=== PATIENT | female | born 2000 | race Caucasian/White ===

== ENCOUNTER 2019-02-12 12:15 | Outpatient (REF) | payer BC, SELFPAY ==
[2019-02-14 10:19] LABS: HBs Antibody, Quant <3.1 mIU/mL; Hepatitis B Surface Ab Negative
== END 2019-02-12 12:35 ==
LOC: NCHCN 12:15
PROVIDERS: PCP Physician Assistant Medical; Visit Provider Physician Assistant Medical
DX: Z11.59 Encounter for screening for other viral diseases (principal)
CPT/HCPCS: 86706

== ENCOUNTER 2019-09-01 12:32 | Outpatient (REF) | payer BC, SELFPAY ==
[2019-09-01 21:29] LABS: Abs Immature Grans 0.01 k/cumm (0.0-0.09); Absolute Basophil Count 0.02 k/cumm (0.0-0.2); Absolute Eosinophil Count 0.18 k/cumm (0.0-0.7); Absolute Lymphocyte Count 1.48 k/cumm (1.2-3.4); Absolute Neutrophil Count 4.59 k/cumm (1.2-6.7); Basophils % 0.3; Eosinophils % 2.6; HGB 13.6 g/dL (12.0-15.5); Immature Grans % 0.1; Lymphocytes % 21.2; Mean Corp. HGB Concentration 32.4 g/dL (32.0-36.0); Mean Corpuscular Hemoglobin 28.8 pg (27.0-33.0); Mean Platelet Volume 11.7 fL (8.0-11.0); Neutrophils % 65.8; Platelet Count 252 x1000/uL (130-400); RBC 4.72 m/cumm (4.00-5.20); RBC Distribution Width 13.2 % (11.7-14.6); White Blood Cell Count 6.98 k/cumm (4.4-10.8)
[2019-09-01 22:10] LABS: ALT 43 U/L (14-59); AST 21 U/L (15-37); Albumin 3.9 g/dL (3.4-5.0); Alkaline Phosphatase 86 U/L (46-116); Anion Gap 7.1 mmol/L (3-11); BUN 13 mg/dL (7-18); Bilirubin, Total 0.3 mg/dL (0.2-1.0); CO2 27.9 mmol/L (21.0-32.0); Calcium 9.3 mg/dL (8.5-10.1); Chloride 104 mmol/L (98-107); Glucose 83 mg/dL (74-106); Potassium 4.5 mmol/L (3.5-5.1); Sodium 139 mmol/L (136-145); TSH (W/Ref FT4) 1.65 uIU/mL (0.36-3.74); Total Protein 7.5 g/dL (6.4-8.2)
== END 2019-09-01 12:52 ==
LOC: NCHCN 12:32
PROVIDERS: PCP Physician Assistant Medical; Visit Provider Physician Assistant Medical
DX: R42 Dizziness and giddiness (principal)
CPT/HCPCS: 80053; 84443; 85025

== ENCOUNTER 2019-11-17 15:05 | Outpatient (REF) | payer BC, SELFPAY ==
[2019-11-19 12:59] LABS: HBs Antibody, Quant >1000.0 mIU/mL (See Note); Hepatitis B Surface Ab Positive (See Note)
== END 2019-11-17 15:25 ==
LOC: NCHCN 15:05
PROVIDERS: PCP Physician Assistant Medical; Visit Provider Physician Assistant Medical
DX: Z11.59 Encounter for screening for other viral diseases (principal)
CPT/HCPCS: 86706

== ENCOUNTER 2019-11-19 04:16 | Outpatient (CLI) | payer BC, SELFPAY ==
--- NOTE | 2019-12-22 08:46 | W.CARDEVENT ---
Date of service: 12/22/19 Time of Service: 08:46 Cardiac Event Recorder Cardiac Event Note: This is a 1 month event recorder ordered for the indication of dizziness. ?The patient was in normal sinus rhythm for the majority of the recording. ?There were no episodes of atrial fibrillation. ?There was one episode of a significant bradycardia with a pause lasting 3 seconds. This occurred at 5 AM and was not associated with symptoms. ?There were 5 patient triggered events which were all associated with sinus rhythm or sinus tachycardia. ?There were no episodes of ventricular tachycardia and no evidence of high degree heart block.
== END 2019-11-19 04:36 ==
PROVIDERS: PCP Physician Assistant Medical; Visit Provider Physician Assistant Medical
DX: R42 Dizziness and giddiness (principal)
CPT/HCPCS: 93270

== ENCOUNTER 2020-02-24 15:59 | Outpatient (REF) | payer BC, SELFPAY ==
[2020-02-25 04:06] LABS: COVID-19 RT-PCR UVMMC Result Negative (Negative)
== END 2020-02-24 16:19 ==
LOC: NCHCN 15:59
PROVIDERS: PCP Physician Assistant Medical; Visit Provider Nurse Practitioner Family
DX: R53.83 Other fatigue (principal)
CPT/HCPCS: U0003

== ENCOUNTER 2021-03-16 18:07 | Outpatient (REF) | payer BC, SELFPAY ==
--- NOTE | 2021-03-16 17:00 | PAPFT_PTH ---
PATIENT: Christel Dodd LOC: [facility]#:[id number] AGE/SX: 20/F ROOM: RE03/16/[address]: aKtie Cheema : 2000 BED: DIS: 03/16/2021 SPEC #: [id number] RECD: 03/17/21 09:36 STATUS: STEPHANIE REShelbie #: [id number] YVETTE: 03/16/21 17:[address]: Katie Cheema DEPT: [facility] Cytology RECD BY: Donna Raman Tissues: 1 - CX/ENDOCX FOR PAP SMEARS Procedures: PAP THIN PREP/[facility]VM Screening Comments: [id number]
[2021-03-18 15:25] LABS: Chlamydia Result Negative (Negative); GC Result Negative (Negative)
== END 2021-03-16 18:08 | disposition home or self-care (01) ==
LOC: NCHCN 18:07
PROVIDERS: PCP Physician Assistant Medical; Visit Provider Physician Assistant Medical
DX: Z11.3 Encounter for screening for infections with a predominantly sexual mode of transmission (principal); Z12.4 Encounter for screening for malignant neoplasm of cervix; Z00.00 Encounter for general adult medical examination without abnormal findings
CPT/HCPCS: 87491; 87591; 88142

== ENCOUNTER 2021-03-21 16:53 | Outpatient (REF) | payer BC, SELFPAY ==
[2021-03-23 10:07] LABS: Hepatitis C Ab w Rflx HCV PCR Negative (Negative)
[2021-03-23 10:14] LABS: HIV-1/2 Ag & Ab Screen Negative (Negative)
[2021-03-23 11:10] LABS: Syphilis Serology (RPR) Negative (Negative)
== END 2021-03-21 16:54 | disposition home or self-care (01) ==
LOC: NCHCN 16:53
PROVIDERS: PCP Physician Assistant Medical; Visit Provider Physician Assistant Medical
DX: Z00.8 Encounter for other general examination (principal); Z11.3 Encounter for screening for infections with a predominantly sexual mode of transmission
CPT/HCPCS: 86803; 87389; 86592

== ENCOUNTER 2023-09-12 14:25 | Emergency (ER) | payer OTHER, SELFPAY ==
--- NOTE | 2023-09-12 14:15 | DI.RAD_ITS ---
Exam(s) XR FINGER RT MIDDLE EXAM: XR FINGER RT MIDDLE CLINICAL HISTORY: nail avulsion crush injury distal phalanx. TECHNIQUE: 2D digital imaging was performed. Three views. COMPARISON: No exams were available for comparison FINDINGS: BONES: No acute fracture is present. No bony destructive lesion is seen. JOINTS: No dislocation present. SOFT TISSUE: Soft tissue swelling around nail. IMPRESSION: No evidence of fracture. DATA REPOSITORY: RADIATION DOSE DELIVERED:
[2023-09-12 14:29] VITALS: BP 148/80; PULSE 90; RESP 18; TEMP 36.8; O2SAT 96
--- NOTE | 2023-09-12 14:32 | ED.GENADUL_ITS ---
HPI General Stated Complaint: Orthopedic VAISHNAVI: 4 Date/Time Provider Initiated Documentation: 09/12/23 14:29. HPI Narrative: 23-year-old female presents 1 day after sustaining crush injury to her right middle finger at work, patient fell back on her and partially avulsed her nail, pain to distal aspect of finger. Related Data Home Medications Medication Instructions Recorded Confirmed ibuprofen 200 mg tablet 200 mg PO Q6H PRN 03/08/20 norgestimate 0.25 mg-ethinyl 1 tab PO DAILY 03/08/20 estradiol 35 mcg tablet trazodone 50 mg tablet 50 mg PO QHS PRN 03/08/20 Allergies Allergy/AdvReac Type Severity Reaction Status Date / Time No Known Allergies Allergy Verified 03/08/20 13:57 Review of Systems Narrative: Review of Systems Constitutional: negative Eyes: negative ENT: negative Cardiovascular: negative Respiratory: negative Gastrointestinal: negative : negative Musculoskeletal: Finger pain Skin: negative Neurologic: negative Psych: negative PFSH All Active Problems (Updated 09/12/23 @ 15:14 by Burke Albert MD) Nail avulsion, finger (Acute) Contusion of finger (Acute) Medical History (Updated 09/12/23 @ 15:14 by Burke Albert MD) Impacted teeth Insomnia Menstrual irregularity Dizzy spells Fatigue Fever Social History (Updated 02/27/20 @ 12:56 by Cristal Ritchie) Smoking/Tobacco Use Status: Never Smoking risk assessment performed?: Yes Alcohol Intake: never Drug use: Never Substance use type: does not use Exam Narrative Exam Narrative: Physical Examination General: alert, awake, cooperative, resting comfortably, no acute distress Skin: no lesions, rashes or trauma appreciated Neuro: AAOx3, normal speech, moving all extremities Extremities: Full flexion and extension both proximally and distally and involved digit third digit of right hand, nailbed secured with surgical glue and Steri-Strips, sensate warm well-perfused Course Vital Signs Vital signs: Vital Signs Pulse 90 09/12/23 14:29 Respiratory Rate 18 09/12/23 14:29 Pulse Oximetry 96 09/12/23 14:29 Pulse 90 09/12/23 14:29 Respiratory Rate 18 09/12/23 14:29 Pulse Oximetry 96 09/12/23 14:29 Oxygen Delivery Method Room Air 09/12/23 14:29 Oxygen Flow Rate 0 09/12/23 14:29 Medical Decision Making 23-year-old female presents with right third finger injury sustained approximate 24 hours ago at work when the patient fell back on her hand, partially avulsing nail bed, nail in place, germinal matrix intact, sensate extremity, flexion both proximally and distally intact, extension intact, warm well-perfused. No other signs of trauma. Consider contusion versus tuft fracture low suspicion for foreign body or infection given history and physical. Will obtain screening x- ray. Will student financial services counselor regarding analgesia and home care. 15: 30 patient resting comfortably no acute distress. X-ray negative for fracture. Patient is in finger immobilizer. Home care instructions and return precautions given will continue with ibuprofen and acetaminophen. Quality:SDOH Health Related Social Needs: No Data to Display Discharge Plan Disposition Patient Disposition: Home Condition: Stable Discharge Details Chief Complaint: Orthopedic Clinical Impression: Contusion of finger, Nail avulsion, finger Primary Care Provider: Katie Cheema ED Provider: Burke Albert Home Meds and New Rx's Prescriptions: No Action ibuprofen 200 mg tablet 200 mg PO Q6H PRN norgestimate-ethinyl estradiol 0.25-35 mg-mcg tablet 1 tab PO DAILY trazodone 50 mg tablet 50 mg PO QHS PRN Discharge Instructions Instructions: Contusion in Adults (ED) Additional Instructions: Please continue with ibuprofen and/or acetaminophen as needed for pain and swelling. Return to the emergency department for any worsening symptoms
== END 2023-09-12 15:16 | disposition home or self-care (01) ==
PROVIDERS: Emergency Provider Emergency Medicine; PCP Physician Assistant Medical
DX: S60.131A Contusion of right middle finger with damage to nail, initial encounter (principal); W03.XXXA Other fall on same level due to collision with another person, initial encounter; Y93.F9 Activity, other caregiving; Y92.89 Other specified places as the place of occurrence of the external cause; Y99.0 Civilian activity done for income or pay
CPT/HCPCS: 99283; 73140

== ENCOUNTER → 2023-11-20 00:49 | Outpatient (CLI) | payer BC, SELFPAY ==
--- NOTE | 2023-11-20 | DI.NM_ITS ---
Exam(s) NM HEPATOBILIARY SCAN GRP EXAM: NM HEPATOBILIARY SCAN GRP CLINICAL HISTORY: DISEASE OF GALLBLADDER K82.9 ABD PAIN. TECHNIQUE: Injected dose: 5 mCi Tc-99 mebrofenin Initial dynamic images: 60 minutes Post-Gallbladder fillin.02 mcg/kg CCK intravenously over a 15min infusion. Addition images: 20 minute dynamic during CCK administration. COMPARISON: CT scan of 11/07/2023 was reviewed. Ultrasound 07/07/2023 was also reviewed (no gallsto rosa). FINDINGS: There is normal uptake and excretion of radiopharmaceutical by the liver. Rapid excretion into the C BD and duodenal C-loop. There is no radiopharmaceutical activity evident in the gallbladder lumen, even with images obtained out to 2 hours. This implies obstruction of the cystic duct. IMPRESSION: 1. There is nonvisualization of the gallbladder at 2 hours. This implies obstruction of the cystic d uct such as evident in acute cholecystitis. Correlation with ultrasound recommended.
== END ==
PROVIDERS: PCP Physician Assistant Medical; Visit Provider Physician Assistant Medical
DX: K82.9 Disease of gallbladder, unspecified (principal)
CPT/HCPCS: 78227

== ENCOUNTER 2023-11-24 22:13 | Emergency (ER) | payer BC, SELFPAY ==
[2023-11-24 22:18] VITALS: BP 174/108; PULSE 91; RESP 18; O2SAT 99
[2023-11-24 22:35] LABS: Bilirubin Negative (Negative); Blood Negative (Negative); Clarity Clear (Clear); Glucose Negative (Negative); Ketones Negative (Negative); Leukocyte Esterase Negative (Negative); Nitrite Negative (Negative); pH 6.5 (5-8)
--- NOTE | 2023-11-24 22:36 | ED.GENADUL_ITS ---
Discharge Plan Disposition Patient Disposition: Home Condition: Stable Discharge Details Chief Complaint: Abd Prob Clinical Impression: Biliary colic Primary Care Provider: Katie Cheema ED Provider: Burke Albert Home Meds and New Rx's Prescriptions: No Action ibuprofen 200 mg tablet 200 mg PO Q6H PRN norgestimate-ethinyl estradiol 0.25-35 mg-mcg tablet 1 tab PO DAILY Discharge Instructions Instructions: Biliary Colic (ED) Additional Instructions: Please follow-up closely with surgical team HPI General Date/Time Provider Initiated Documentation: 11/24/23 22:16 . HPI Narrative: 23-year-old female known to gallbladder/gall sludge recent positive HIDA scan with referral to general surgery at [facility] presents with worsening right upper quadrant discomfort mild nausea. No vomiting. Had food in pancakes this evening. Denies fevers chills or other systemic signs of illness. Is scheduled to be seen by general surgery at [place] at the end of the month Related Data Home Medications Medication Instructions Recorded Confirmed ibuprofen 200 mg tablet 200 mg PO Q6H PRN 03/08/20 11/24/23 norgestimate 0.25 mg-ethinyl 1 tab PO DAILY 03/08/20 11/24/23 estradiol 35 mcg tablet Allergies Allergy/AdvReac Type Severity Reaction Status Date / Time No Known Allergies Allergy Verified 11/24/23 22:24 General Stated Complaint: Abd Prob VAISHNAVI: 3 Review of Systems Narrative: Review of Systems Constitutional: negative Eyes: negative ENT: negative Cardiovascular: negative Respiratory: negative Gastrointestinal: Abdominal pain : negative Musculoskeletal: negative Skin: negative Neurologic: negative Psych: negative Exam Narrative Exam Narrative: Physical Examination General: alert, awake, cooperative HEENT: normocephalic, atraumatic; PERRL, EOM intact, conjunctiva normal; no nasal discharge; moist mucous membranes Neck: supple, trachea midline; full ROM Chest: normal to inspection Respiratory: normal respiratory effort, speaking in full sentences GI: abdomen soft, non-tender, non-distended; no palpable mass or hepatosplenomegaly; negative Garcia sign Skin: no lesions, rashes or trauma appreciated Neuro: AAOx3, normal speech, moving all extremities Course Vital Signs Vital signs: Vital Signs Pulse 91 H 11/24/23 22:18 Respiratory Rate 18 11/24/23 22:18 Blood Pressure 174/108 H 11/24/23 22:18 Pulse Oximetry 99 11/24/23 22:18 Pulse 91 H 11/24/23 22:18 Respiratory Rate 18 11/24/23 22:18 Respiratory Effort Normal 11/24/23 22:21 Blood Pressure 174/108 H 11/24/23 22:18 Pulse Oximetry 99 11/24/23 22:18 Oxygen Delivery Method Room Air 11/24/23 22:18 Oxygen Flow Rate 0 11/24/23 22:18 Pain Level 7 11/24/23 22:18 Lab/Test Results Lab/Test Results: POC- Test(urine) Negative Medical Decision Making 23-year-old female history of known gallbladder sludge/stones, recent positive HIDA scan, following with general surgery at [facility] pain of the month presents with worsening abdominal pain mild nausea, no vomiting no fevers, no chills. Abdomen soft nontender nondistended negative Garcia sign, on bedside ultrasound gallbladder wall thickness 4.6 mm, sludge and small stones noted throughout gallbladder, no pericholecystic fluid appreciated, negative sonographic Garcia sign. Will obtain basic labs to assess for white count and/or bilirubin/LFT abnormality. Will provide fluids analgesia antiemetics. Will consider imaging with CT abdomen pelvis pending reassessment. 00: 03 patient was comfortably no acute distress. Hemodynamically stable. No white count. Nonperitoneal. Patient debating whether to go home and follow-up with her surgeon at [place] or stay for admission here tonight for pain control and surgical evaluation at [facility]. Currently discussing with mother at bedside. Quality:SDOH Health Related Social Needs: No Data to Display PFSH All Active Problems (Updated 11/25/23 @ 00:06 by Burke Albert MD) Biliary colic (Acute) Medical History (Updated 11/25/23 @ 00:06 by Burke Albert MD) Impacted teeth Insomnia Menstrual irregularity Dizzy spells Fatigue Fever Social History (Updated 02/27/20 @ 12:56 by Cristal Ritchie) Smoking/Tobacco Use Status: Never Smoking risk assessment performed?: Yes Alcohol Intake: never Drug use: Never Substance use type: does not use Do you feel safe at home: Yes
--- NOTE | 2023-11-24 22:45 | NUR.NOTE ---
referral sent to care management [place] [facility] billiary colic to be seen this week if possible per ER Dr. Albert Nursing Note:
[2023-11-24] MEDS: Ondansetron 4 MG/2 ML VIAL IVP (23:15)
[2023-11-24] MEDS: Normal Saline 1,000 ML 1000 ML IV (23:16)
[2023-11-24] MEDS: Ketorolac 15 MG/ML VIAL IVP (23:17)
[2023-11-24] MEDS: Famotidine 20 MG/2 ML VIAL IVP (23:18)
[2023-11-24 23:19] LABS: Abs Immature Grans 0.01 10^3/uL (0.0-0.06); Absolute Basophil Count 0.03 10^3/uL (0.0-0.2); Absolute Eosinophil Count 0.13 10^3/uL (0.0-0.7); Absolute Lymphocyte Count 2.37 10^3/uL (1.2-3.4); Absolute Monocyte Count 0.68 10^3/uL (0.1-0.8); Absolute Neutrophil Count 3.39 10^3/uL (1.2-6.7); Basophils % 0.5; HCT 39.1 % (36.0-46.0); HGB 12.5 g/dL (11.2-15.7); Immature Grans % 0.2; Lymphocytes % 35.9; MCV 88 fL (80-95); Monocytes % 10.3; Neutrophils % 51.1; Platelet Count 236 10^3/uL (130-400); RBC 4.47 10^6/uL (3.93-5.22); RDW-SD 41.9 fL; WBC 6.61 10^3/uL (4.4-10.8)
[2023-11-24 23:35] LABS: ALT 48 U/L (14-59); AST 25 U/L (15-37); Albumin 3.8 g/dL (3.4-5.0); Alkaline Phosphatase 105 U/L (46-116); Anion Gap 10.3 mmol/L (3-11); BUN 10 mg/dL (7-18); Bilirubin, Total 0.3 mg/dL (0.2-1.0); CO2 27.7 mmol/L (21.0-32.0); CREATININE 0.9 mg/dL (0.55-1.02); Calcium 9.2 mg/dL (8.5-10.1); Chloride 104 mmol/L (98-107); Estimated GFR 91.55 (mL/min/1.73m2); Glucose 123 mg/dL (74-106); Lipase 32 U/L (16-77); Potassium 3.7 mmol/L (3.5-5.1); Sodium 142 mmol/L (136-145); Total Protein 7.8 g/dL (6.4-8.2)
[2023-11-25 00:06] VITALS: TEMP 36.9
[2023-11-25] MEDS: Ondansetron O.D.T. 4 MG TABEF, 3 TABS/BTL PO (00:20)
[2023-11-25] MEDS: Ketorolac 10 MG TAB PO (00:20)
[2023-11-25 00:21] VITALS: BP 124/68; PULSE 82; RESP 18; TEMP 36.2; O2SAT 100
== END 2023-11-25 00:21 | disposition home or self-care (01) ==
PROVIDERS: Emergency Provider Emergency Medicine; PCP Physician Assistant Medical
DX: R10.11 Right upper quadrant pain (principal); K80.50 Calculus of bile duct without cholangitis or cholecystitis without obstruction
CPT/HCPCS: 80053; 81025; 83690; 96361; 96374; 96375; 99284; 81003; 85025; J1885; J2405

== ENCOUNTER 2024-08-01 13:39 | Outpatient (CLI) | payer BC, SELFPAY ==
--- NOTE | 2024-08-01 15:10 | DI.RAD_ITS ---
Exam(s) XR ELBOW RT COMPLETE EXAM: XR ELBOW RT COMPLETE CLINICAL HISTORY: PAIN RT ELBOW, M25.521,INJURY RUE,? FX OR RADIAL HEAD DISPLACEMENT. TECHNIQUE: 2D digital imaging was performed. Three views. COMPARISON: No exams were available for comparison FINDINGS: BONES: No acute fracture is present. No bony destructive lesion is seen. JOINTS: The elbow is normally aligned. No joint effusion is seen. SOFT TISSUE: Mild posterior soft tissue swelling. IMPRESSION: Mild soft tissue swelling. No evidence of fracture. DATA REPOSITORY: RADIATION DOSE DELIVERED:
== END 2024-08-01 13:59 ==
PROVIDERS: PCP Physician Assistant Medical; Visit Provider Family Medicine
DX: M25.521 Pain in right elbow (principal)
CPT/HCPCS: 73080

== ENCOUNTER 2024-08-05 17:28 | Outpatient (CLI) | payer BC, SELFPAY ==
--- NOTE | 2024-08-05 | DI.MRI_ITS ---
Exam(s) MR ORBIT FACIAL NECK WO/W EXAM: MR ORBIT FACIAL NECK WO/W CLINICAL HISTORY: PAPILLEDEMA H47.10, RIGHT EYE, R/O LESION, TECHNIQUE: Multiplanar multisequence MRI of the orbits was performed with both pre and post contrast infused sequences. Contrast injected was 20 mL Dotarem intravenous.. COMPARISON: No exams were available for comparison FINDINGS: ORBITS: The anterior and posterior chambers of the globes are intact. The retrobulbar fat is unremark able. Extraocular muscles are unremarkable. OPTIC NERVES: No evidence of focal masses. There is slight tortuosity of both optic nerves and there is circumferential fluid along the course of both optic nerves as seen on the coronal and axial T2 im ages. Optic chiasm is within normal limits. No MRI evidence of optic neuritis identified. SOFT TISSUES: No abnormality at the level the lacrimal glands. Remaining soft tissues are unremarkab le. PARANASAL SINUSES: No significant mucosal thickening nor fluid in the maxillary and frontal sinuses a nd ethmoidal air cells. Sphenoid sinuses are underdeveloped. PITUITARY GLAND: Pituitary gland size and contour are normal. There is no deviation of the stock-inf undibulum. There is no mass in the suprasellar cistern nor at the level the optic chiasm. Cavernous sinuses appear unremarkable. VESSELS: No evidence of aneurysms in the [id number]. No significant vascular deviation. No ev idence of vascular malformation. No evidence of venous sinus thrombosis OTHER: There is cystic expansion of the septum pellucidum with symmetrical lateral deviation of the 2 membranes of these normally midline structures. This contains CSF intensity fluid and is consistent with a cavum pellucidum cyst which measures 1.8 cm wide (transverse) x 2.5 cm AP x 2.4 cm craniocaud al. The posterior wall of this cyst is defined by a thin membrane. The cyst approaches neared 2 but does not appear to compress the bilateral foramen of Monro and there does not appear to significant h ydrocephalus.. There is also no abnormal periventricular white matter signal abnormality.. IMPRESSION: There are no significant focal findings in the orbital globes and retro conal compartments with the e xception of a slight tortuosity of both optic nerves as well as slightly more than usual circumferent ial fluid symmetrically evident along the length of both optic nerves. This may be associated with i ncreased intracranial pressure. Within the intracranial compartment there is a 1.8 by 2.5 x 2.4 cm cyst of the cavum septum pellucidu m. This approaches but does not appear to significantly compress the bilateral foramen of Monro and t here is no significant hydrocephalus. Recommend appropriate referral. DATA REPOSITORY:
[2024-08-05] MEDS: Normal Saline Flush 10 ML SYR IVP (15:03)
[2024-08-05] MEDS: Gadoterate meglumine 20 ML SYRINGE IVP (15:04)
--- NOTE | 2024-08-05 17:39 | DI.VRAD_ITS ---
PROCEDURE INFORMATION: Exam: MR Orbit Without and With Contrast Exam date and time: 08/05/2024 2:44 PM Age: 24 years old Clinical indication: Papilledema h47.10, right eye, R/O lesion, TECHNIQUE: Imaging protocol: MR Orbit was performed without and with contrast. Contrast material: DOTAREM; Contrast volume: 20 ml; Contrast route: INTRAVENOUS (IV); COMPARISON: No relevant prior studies available. FINDINGS: Orbital cavities: Globes are unremarkable. No evidence of orbital mass or abnormal enhancement. There is mild tortuosity of the bilateral optic nerves, which could be a normal variant or secondary to increased intracranial pressure. Paranasal sinuses: Unremarkable. No air-fluid levels. Cerebral ventricles: There is a cavum septum pellucidum et vergae. There is a cyst of the cavum septum pellucidum measuring approximately 2.6 cm in craniocaudal dimension and 1.8 cm in transverse dimension (image 14, series 6001). Soft tissues: No significant subcutaneous soft tissue abnormality. IMPRESSION: 1. No evidence of orbital mass lesion or abnormal enhancement. 2. Mild tortuosity of the bilateral optic nerves, which is nonspecific but may be seen in the setting of increased intracranial pressures. Clinical correlation recommended. 3. Cyst of the cavum septum pellucidum noted measuring up to 2.6 cm. Correlate with clinical findings for any associated symptoms. Dictated and Authenticated by: Niecy Mas MD. Ordering:FAUSTINO Benavidez MD
== END 2024-08-05 17:48 ==
PROVIDERS: PCP Physician Assistant Medical; Visit Provider Optometrist
DX: H47.10 Unspecified papilledema (principal)
CPT/HCPCS: 70543

== ENCOUNTER 2025-02-16 18:15 | Outpatient (REF) | payer OTHER, SELFPAY ==
--- NOTE | 2025-02-16 13:15 | PAPFT_PTH ---
PATIENT: Christel Dodd LOC: [facility]#:[id number] AGE/SX: 24/F ROOM: RE02/16/[address]: Katie Cheema : 2000 BED: DIS: 02/16/2025 SPEC #: [id number] RECD: 02/16/25 18:47 STATUS: STEPHANIE REQ #: [id number] YVETTE: 02/16/25 13:[address]: Katie Cheema DEPT: [facility] Cytology RECD BY: Angela Berg Tissues: 1 - CX/ENDOCX FOR PAP SMEARS Procedures: PAP THIN PREP/UVM Screening HPV DNA PROBE Comments: [id number] (HPV 16 & 18/45) (CHLAMYDIA/GC)
[2025-02-17 12:01] LABS: Chlamydia Result Negative (Negative); GC Result Negative (Negative)
== END 2025-02-16 18:16 | disposition home or self-care (01) ==
LOC: NCHCN 18:15
PROVIDERS: PCP Physician Assistant Medical; Visit Provider Physician Assistant Medical
DX: Z01.419 Encounter for gynecological examination (general) (routine) without abnormal findings (principal); R85.81 Anal high risk human papillomavirus (HPV) DNA test positive; Z11.51 Encounter for screening for human papillomavirus (HPV)
CPT/HCPCS: 87491; 87591; 88142; 87624

== ENCOUNTER 2025-02-20 14:29 | Outpatient (CLI) | payer OTHER, SELFPAY ==
--- NOTE | 2025-02-20 15:50 | DI.MRI_ITS ---
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 COMPARISON: MR MR ORBIT FACIAL NECK WO/W from 08/05/2024 FINDINGS: CEREBRAL PARENCHYMA: The size and configuration of the previously described cyst of the cavum septum pellucidum is unchanged when compared to the prior study of 08/05/2024. This again measures 1.8 cm wide by 2.5 cm AP by 2.4 cm craniocaudal, unchanged. There is increased in size of the ventricles. There is no significant hydrocephalus. There is no abnormal periventricular white matter signal abnormality nor signal abnormality elsewhere in the brain. There is no evidence of restricted diffusion on DWI to suggest acute ischemic event. PITUITARY GLAND: No mass nor parasellar abnormality. No obvious abnormality in the cavernous sinuses. FLOW VOIDS: The expected flow void are noted. No evidence of obvious aneurysm nor obvious vascular malformation. PARANASAL SINUSES: The visualized paranasal sinuses appear unremarkable. No obvious finding ORBITS: No obvious findings. IMPRESSION: No significant change when compared to the prior MRI scan of 08/05/2024. The previously described cyst of the cavum septum pellucidum is unchanged in size, configuration, and signal characteristics. DATA REPOSITORY:
== END 2025-02-20 14:49 ==
PROVIDERS: PCP Physician Assistant Medical; Visit Provider Occupational Therapist
DX: Q04.8 Other specified congenital malformations of brain (principal); G93.2 Benign intracranial hypertension
CPT/HCPCS: 70551

== ENCOUNTER 2025-06-23 19:17 | Outpatient (REF) | payer OTHER, SELFPAY | END 2025-06-23 19:18 | disposition home or self-care (01) | LOC: LBN 19:17 | PROVIDERS: PCP Physician Assistant Medical; Visit Provider Nurse Practitioner Family | DX: J02.9 Acute pharyngitis, unspecified (principal) | CPT/HCPCS: 87070 ==